=== PATIENT | male | born 1970 | race African-American/Black ===

== ENCOUNTER 2016-05-10 23:52 | Emergency (ER) | payer OTHER ==
[~2016-05-10] VITALS: Ht 170.2 cm; Wt 61.2 kg
[2016-05-11] MEDS ORDERED: IV NORMAL SALINE 1000ML BAG 1,000 ML IV SCH (00:30)
--- NOTE | 2016-05-11 00:35 | PHYS DOC ---
Past Medical History Past Medical History: No Pertinent History Past Surgical History: Other Additional Past Surgical Histo: finger Alcohol Use: None Drug Use: None Adult General Chief Complaint Chief Complaint: DIZZY/LIGHT HEADED HPI HPI Patient is a 45 year old male who presents with complaint of near syncopal symptoms. Patient states his symptoms started approximately 45 minutes prior to arrival. Patient states that he started noticing positional lightheadedness especially when he would try to stand up from sitting. Patient denies any previous history of similar symptoms. Patient denies any known health problems. 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 Patient states that he has been eating well but has been behind on his fluid intake. Patient denies any associated fever, chest pain, shortness of breath, abdominal pain, or vomiting. Review of Systems Review of Systems Constitutional: Lightheadedness, Denies fever or chills [] Eyes: Denies change in visual acuity, redness, or eye pain [] HENT: Denies nasal congestion or sore throat [] Respiratory: Denies cough or shortness of breath [] Cardiovascular: Denies chest pain or edema [] GI: Denies abdominal pain, nausea, vomiting, bloody stools or diarrhea [] : Denies dysuria or hematuria [] Musculoskeletal: Denies back pain or joint pain [] Integument: Denies rash or skin lesions [] Neurologic: Denies headache, focal weakness or sensory changes [] Current Medications Current Medications Current Medications Medications (Trade) Dose Ordered Sig/Sharad Start Time Stop Time Status Last Admin Dose Admin Sodium Chloride (Iv Sodium Chloride 0.9% 1000ml Bag) 1,000 ml @ 1,000 mls/hr Q1H 05/11/16 00:30 05/11/16 01:29 DC 05/11/16 00:36 1,000 MLS/HR Allergies Allergies Allergies Coded Allergies Type Severity Reaction Last Updated Verified No Known Drug Allergies 07/17/14 No Physical Exam Physical Exam Constitutional: Alert, afebrile, no acute distress. [] HENT: Normocephalic, atraumatic, bilateral external ears normal, oropharynx moist, no oral exudates, nose normal. [] Eyes: PERRLA, EOMI, conjunctiva normal, no discharge. [] Neck: Normal range of motion, no tenderness, supple, no stridor. [] Cardiovascular:Heart rate regular rhythm, no murmur [] Lungs & Thorax: Bilateral breath sounds clear to auscultation [] Abdomen: Bowel sounds normal, soft, no tenderness, no masses, no pulsatile masses. [] Skin: Warm, dry, no erythema, no rash. [] Back: No tenderness, no CVA tenderness. [] Extremities: No tenderness, no cyanosis, no clubbing, ROM intact, no edema. [] Neurologic: Alert and oriented X 3, normal motor function, normal sensory function, no focal deficits noted. [] Current Patient Data Vital Signs Vital Signs Date Time Temp Pulse Resp B/P Pulse Ox O2 Delivery O2 Flow Rate FiO2 05/11/16 01:14 51 14 101/60 100 Room Air 05/10/16 23:59 98.3 98.3 Lab Values Laboratory Tests Test 05/11/16 00:25 05/11/16 01:20 White Blood Count 5.1x10^3/uL (4.0-11.0) Red Blood Count 4.64x10^6/uL (4.30-5.70) Hemoglobin 13.9g/dL (13.0-17.5) Hematocrit 42.8% (39.0-53.0) Mean Corpuscular Volume 92fL (79-100) Mean Corpuscular Hemoglobin 30pg (25-35) Mean Corpuscular Hemoglobin Concent 33g/dL (31-37) Red Cell Distribution Width 13.6% (11.5-14.5) Platelet Count 206x10^3/uL (140-400) Neutrophils (%) (Auto) 50% (31-73) Lymphocytes (%) (Auto) 39% (24-48) Monocytes (%) (Auto) 9% (0-9) Eosinophils (%) (Auto) 1% (0-3) Basophils (%) (Auto) 1% (0-3) Neutrophils # (Auto) 2.6x10^3uL (1.8-7.7) Lymphocytes # (Auto) 2.0x10^3/uL (1.0-4.8) Monocytes # (Auto) 0.5x10^3/uL (0.0-1.1) Eosinophils # (Auto) 0.1x10^3/uL (0.0-0.7) Basophils # (Auto) 0.0x10^3/uL (0.0-0.2) Sodium Level 144mmol/L (136-145) Potassium Level 3.8mmol/L (3.5-5.1) Chloride Level 108mmol/L (98-107) H Carbon Dioxide Level 26mmol/L (21-32) Anion Gap 10 (6-14) Blood Urea Nitrogen 17mg/dL (8-26) Creatinine 1.1mg/dL (0.7-1.3) Estimated GFR (Cockcroft-Gault) 87.6 BUN/Creatinine Ratio 15 (6-20) Glucose Level 104mg/dL (70-99) H Calcium Level 8.9mg/dL (8.5-10.1) Total Bilirubin 0.2mg/dL (0.2-1.0) Aspartate Amino Transferase (AST) 14U/L (15-37) L Alanine Aminotransferase (ALT) 18U/L (16-63) Alkaline Phosphatase 46U/L (46-116) Creatine Kinase 215U/L (39-308) Creatine Kinase MB (Mass) < 0.5ng/mL (0.0-3.6) Creatine Kinase MB Relative Index 0.2% (0-4) Troponin I Quantitative < 0.017ng/mL (0.000-0.055) Total Protein 7.1g/dL (6.4-8.2) Albumin 3.7g/dL (3.4-5.0) Albumin/Globulin Ratio 1.1 (1.0-1.7) Urine Collection Type Unknown Urine Color Yellow Urine Clarity Clear Urine pH 7.0 Urine Specific Doyle >=1.030 Urine Protein Negativemg/dL (NEG-TRACE) Urine Glucose (UA) Negativemg/dL (NEG) Urine Ketones (Stick) Negativemg/dL (NEG) Urine Blood Negative (NEG) Urine Nitrite Negative (NEG) Urine Bilirubin Negative (NEG) Urine Urobilinogen Dipstick 1.0mg/dL (0.2 mg/dL) Urine Leukocyte Esterase Negative (NEG) Urine RBC 1-2/HPF (0-2) Urine WBC 1-4/HPF (0-4) Urine Squamous Epithelial Cells Occ/LPF Urine Bacteria 0/HPF (0-FEW) Urine Mucus Mod/LPF Urine Opiates Screen Neg (NEG) Urine Methadone Screen Neg (NEG) Urine Barbiturates Neg (NEG) Urine Phencyclidine Screen Neg (NEG) Urine Amphetamine/Methamphetamine Neg (NEG) Urine Benzodiazepines Screen Neg (NEG) Urine Cocaine Screen Neg (NEG) Urine Cannabinoids Screen Neg (NEG) Urine Ethyl Alcohol Neg (NEG) Laboratory Tests 05/11/16 00:25 Laboratory Tests 05/11/16 00:25 EKG EKG Interpreted by me: Heart rate 50, sinus bradycardia, left axis deviation, incomplete right bundle branch block, no acute ST/T-wave abnormalities present [ ] Radiology/Procedures Radiology/Procedures One view AP chest x-ray interpreted by me: No infiltrate, no effusions, normal cardiac silhouette [] Course & Med Decision Making Course & Med Decision Making Pertinent Labs and Imaging studies reviewed. (See chart for details) Patient was given IV fluids in the emergency department. Patient's urine was found to be highly concentrated, however rest of lab work was unremarkable. The patient's symptoms appear consistent with dehydration. After IV fluids, the patient feels better at this time. Patient was able to ambulate in the emergency department with a nonfocal during gait. Advised patient to continue with increased oral fluids at home and rest for the next few days with recommended follow-up in 3-4 days a primary doctor and return to emergency department for any worsening symptoms. Patient voiced understanding and in agreement with treatment plan. Dragon Disclaimer Dragon Disclaimer This electronic medical record was generated, in whole or in part, using a voice recognition dictation system. Departure Departure Impression: Primary Impression: Dehydration Additional Impression: Near syncope Disposition: HOME, SELF-CARE Condition: IMPROVED Referrals: IDALIA GONZALEZ MD (PCP) Patient Instructions: Dehydration, Adult Additional Instructions: Be sure to drink plenty of fluids at home. Follow-up with your primary doctor in 3-4 days and return to emergency department for any worsening symptoms. Problem Qualifiers GELA GARCIA MD May 11, 2016 00:35
[2016-05-11 00:42] LABS: BASO % 1 % (0-3); EOS % 1 % (0-3); HEMATOCRIT 42.8 % (39.0-53.0); HEMOGLOBIN 13.9 g/dL (13.0-17.5); LYMPH % 39 % (24-48); MEAN CORPUSCULAR HEMOGLOBIN 30 pg (25-35); MEAN CORPUSCULAR HGB CONC 33 g/dL (31-37); MEAN CORPUSCULAR VOLUME 92 fL (79-100); MONO % 9 % (0-9); NEUT % 50 % (31-73); PLATELET COUNT 206 x10^3/uL (140-400); RED BLOOD COUNT 4.64 x10^6/uL (4.30-5.70); RED CELL DISTRIBUTION WIDTH 13.6 % (11.5-14.5); WHITE BLOOD COUNT 5.1 x10^3/uL (4.0-11.0)
[2016-05-11 00:56] LABS: CALCIUM 8.9 mg/dL (8.5-10.1); CREATININE 1.1 mg/dL (0.7-1.3); GFR 87.6; POTASSIUM 3.8 mmol/L (3.5-5.1)
[2016-05-11 01:02] LABS: ALBUMIN 3.7 g/dL (3.4-5.0); ALBUMIN/GLOBULIN RATIO 1.1 (1.0-1.7); TOTAL BILIRUBIN 0.2 mg/dL (0.2-1.0); TOTAL PROTEIN 7.1 g/dL (6.4-8.2)
[2016-05-11 01:10] LABS: CREATINE KINASE 215 U/L (39-308)
[2016-05-11 01:13] LABS: CKMB INDEX 0.2 % (0-4); CKMB MASS < 0.5 ng/mL (0.0-3.6)
[2016-05-11 01:41] LABS: BILIRUBIN,URINE NEGATIVE (NEG); GLUCOSE,URINE NEGATIVE (NEG); NITRITE,URINE NEGATIVE (NEG); PROTEIN,URINE NEGATIVE (NEG-TRACE)
[2016-05-11 01:47] LABS: BARBITURATES NEG (NEG); BENZODIAZEPINES NEG (NEG); CANNABINOIDS NEG (NEG); COCAINE NEG (NEG); METHADONE NEG (NEG); OPIATES NEG (NEG); PHENCYCLIDINE NEG (NEG)
[2016-05-11 01:49] LABS: BACTERIA,URINE 0 /HPF (0-FEW); SQUAMOUS EPITHELIAL CELL,UR OCC /LPF
[2016-05-11 01:56] LABS: ETHANOL, URINE NEG (NEG)
[2016-05-11 02:00] VITALS: BP 99/67
--- NOTE | 2016-05-11 07:59 | RAD ---
Indication near syncope. Protocol study. A single view of the chest was obtained and is compared to an examination almost 7 years earlier. The heart and pulmonary vessels appear normal. The lungs are clear. There has not been a significant change compared to the previous exam. IMPRESSION: No acute or significant finding apparent in the chest
--- NOTE | 2016-05-11 11:27 | EKG ---
[facility] [address] [place] [address] Test Date: 2016-05-11 Test Time: 00:00:17 Pat Name: JULIOCESAR KRUGER Department: Room: Gender: M Weigher Production: : 1970 Requested By: GLEA GARCIA Order Number: [id number] Reading MD: Measurements Intervals [place] Rate: 50 P: 54 DC: 156 QRS: -59 QRSD: 98 T: 62 QT: 384 QTc: 352 Interpretive Statements SINUS RHYTHM ABNORMAL LEFT AXIS DEVIATION LEFT ANTERIOR FASCICULAR BLOCK INCOMPLETE RIGHT BUNDLE BRANCH BLOCK T ABNORMALITY IN HIGH LATERAL LEADS ABNORMAL ECG RI6.01 No previous ECG available for comparison
== END 2016-05-11 02:38 | disposition home or self-care (01) ==
LOC: ER 23:52
DX: E86.0 Dehydration (principal); R55 Syncope and collapse
CPT/HCPCS: 36415; 71010; 80053; 80305; 80320; 81001; 82553; 84484; 85027; 93005; 96360; 99285; J7030; G0481

== ENCOUNTER → 2017-01-15 | Outpatient (CLI) | payer OTHER ==
--- NOTE | 2017-01-15 16:05 | CARD ---
APPROVED REPORT INDICATION Fatigue Chest Pain Reason : Patient complained of pain PROCEDURE The patient underwent an Exercise Stress Test using the Modified Kan Protocol. Blood pressure, hear t rate, and EKG were monitored. An Echocardiogram was performed by geothermal technician in four stages in quad fashion. At peak stress four se lected images were obtained and placed side by side with resting images for comparison. STRESS ECHO FINDINGS The resting Echocardiogram showed normal left ventricular systolic contractility with an estimated Ej ection Fraction of about 55 %. The Resting Echocardiogram showed normal augmentation of myocardial wall segments using a 16 segment model. The Stress Echocardiogram left ventricular systolic contractility has an estimated Ejection Fraction of about 70%. Test Type: Exercise Stress Nurse/Tech: Marge Potts R.N. Test Indications: CHEST PAIN Cardiac History and Allergies: NONE Medications: NONE Medical History: NONE Resting ECG: SR Resting Heart Rate: 56 bpm Resting Blood Pressure: 107/54mmHg Pretest Chest Pain: No chest pain Nurse/Tech Notes LUNGS CTA, HEART TONES REGULAR Stress Symptoms No chest pain or symptoms. POST EXERCISE Reason for Termination: Reached target heart rate Target HR: Yes Max HR: 160 bpm 92% of Maximum Predicted HR: 174 bpm Exercise duration: 9:02 min:sec, 3 Stage Exercise capacity: 10.1METs Max Blood Pressure: 132/68mmHg Blood Pressure response to exercise: Normal blood pressure response during stress. Heart Rate response to exercise: NORMAL Chest Pain: No. Arrhythmia: Yes. PACS ST Change: Yes. ST DEPRESSION V3-V6 DURING EXERCISE WHICH RESOLVED IN RECOVERY RESTING ECG Rhythm: Sinus Repolarization: Normal STRESS ECG Rhythm: Sinus Tachycardia Stress EKG shows no significant changes. Preliminary Notification Critical Value: No <Conclusion> Good exercise capacity at 10.1 Mets. Normal resting wall motion and EF at 55% Normal stress wall motion and EF at 70% (Stress images obtained at less than APMHR) Slightly blunted BP response. Low risk study (Amaro Treadmill score of 0)
== END | disposition home or self-care (01) ==
LOC: ECHO 13:33
PROVIDERS: ATTEND Internal Medicine Cardiovascular Disease
DX: R07.89 Other chest pain (principal); R00.0 Tachycardia, unspecified
CPT/HCPCS: 93017; 93350

== ENCOUNTER 2019-02-18 16:40 | Emergency (ER) | payer OTHER ==
[~2019-02-18] VITALS: Ht 170.2 cm; Wt 63.5 kg
[2019-02-18 17:15] VITALS: BP 146/68
[2019-02-18] MEDS ORDERED: ACETAMINOPHEN 500 MG TABLET PO ONE (18:00)
--- NOTE | 2019-02-18 18:07 | PHYS DOC ---
Past Medical History Past Medical History: No Pertinent History (HILARIO VALDEZ APRN) Past Surgical History: Other Additional Past Surgical Histo: finger (HILARIO VALDEZ APRN) Alcohol Use: None Drug Use: None (HILARIO VALDEZ APRN) Adult General Chief Complaint Chief Complaint: NOSEBLEED [facility] HPI Patient is a 48 year old AA male accompanied by his , who presents to the emergency department with complaints of intermittent nosebleeds for the last 2 days. Patient states over the last week he has had a nonproductive cough, nasal congestion, sore throat, ear pain, and headaches. He denies the use of any blood thinners. He denies any injury or trauma to his nose. He denies any fever, nausea, vomiting, diarrhea, wheezing, or shortness of breath. Currently, he rates his pain a 5 out of 10 on the pain scale, he states the Tylenol helps his pain. All other ROS is neg unless otherwise noted in HPI. (HILARIO VALDEZ APRN) Review of Systems Review of Systems See Above (HILARIO VALDEZ APRN) Current Medications Current Medications Current Medications Medications (Trade) Dose Ordered Sig/Sharad Start Time Stop Time Status Last Admin Dose Admin Acetaminophen (Tylenol) 1,000 mg 1X ONCE 02/18/19 18:00 02/18/19 18:01 DC 02/18/19 17:58 1,000 MG (HAYDEN WRIGHT DO) Allergies Allergies Allergies Coded Allergies Type Severity Reaction Last Updated Verified No Known Drug Allergies 07/17/14 No (HAYDEN WRIGHT DO) Physical Exam Physical Exam See Above Constitutional: Well developed, well nourished, no acute distress, non-toxic appearance. [] HENT: Normocephalic, atraumatic, bilateral external ears normal, bilateral TMs normal, posterior pharynx normal oropharynx moist, no oral exudates; nasal turbinates are erythematous and edematous bilaterally, no active bleeding, nasal congestion Eyes: PERRLA, EOMI, conjunctiva normal, no discharge. [] Neck: Normal range of motion, no tenderness, supple, no stridor. [] Cardiovascular:Heart rate regular rhythm, no murmur [] Lungs & Thorax: Bilateral breath sounds clear to auscultation, Respirations e guerita and unlabored, no retractions, no respiratory distress [] Skin: Warm, dry, no erythema, no rash. [] Extremities: No cyanosis, ROM intact, no edema. [] Neurologic: Alert and oriented X 3, no focal deficits noted. [] Psychologic: Affect normal, judgement normal, mood normal. [] (HILARIO VALDEZ APRN) Current Patient Data Vital Signs Vital Signs Date Time Temp Pulse Resp B/P (MAP) Pulse Ox O2 Delivery O2 Flow Rate FiO2 02/18/19 17:15 98.6 64 12 146/68 (94) 98 Room Air 98.6 (HAYDEN WRIGHT DO) EKG EKG [] (HILARIO VALDEZ APRN) Radiology/Procedures Radiology/Procedures [] (HILARIO VALDEZ APRN) Course & Med Decision Making Course & Med Decision Making Pertinent Labs and Imaging studies reviewed. (See chart for details) [] (HILARIO VALDEZ APRN) Dragon Disclaimer Dragon Disclaimer This electronic medical record was generated, in whole or in part, using a voice recognition dictation system. (HILARIO VALDEZ APRN) Departure Departure Impression: Primary Impression: Rhinitis Additional Impression: URI with cough and congestion Disposition: HOME, SELF-CARE Condition: STABLE Referrals: IDALIA GONZALEZ MD (PCP) Patient Instructions: Upper Respiratory Infection, Adult, [id number] Additional Instructions: Apply vaseline or other moisturizer inside both nostrils twice daily. Recommend the use of a cool mist humidifier. Avoid airway irritants such as dust, perfume, smoke, and animal dander. Alternate tylenol and ibuprofen as needed for pain/fever. Follow up with your primary care doctor next week, return to the ER if symptoms worsen. Attending Signature Attending Signature I have reviewed the PA/BLOCK BOLTER MULE OPERATOR's note and plan of care. I was available for consultation as needed during the patient's visit in the emergency department. I agree with the clinical impression, plan, and disposition. (HAYDEN WRIGHT DO) Problem Qualifiers Primary Impression: Rhinitis Rhinitis type: acute Qualified Codes: J00 - Acute nasopharyngitis [common cold] HILARIO VALDEZ APRN Feb 18, 2019 18:07 HAYDEN WRIGHT DO Feb 23, 2019 19:40
== END 2019-02-18 18:08 | disposition home or self-care (01) ==
LOC: ER 16:40
DX: J00 Acute nasopharyngitis [common cold] (principal); J06.9 Acute upper respiratory infection, unspecified
CPT/HCPCS: 99282

== ENCOUNTER 2020-01-24 09:43 | Emergency (ER) | payer OTHER ==
[~2020-01-24] VITALS: Ht 170.2 cm; Wt 63.6 kg
[2020-01-24] MEDS ORDERED: IV NORMAL SALINE 1000ML BAG 1,000 ML IV ONE (10:15)
--- NOTE | 2020-01-24 10:20 | PHYS DOC ---
Past Medical History Past Medical History: Migraines (ALEXIE PRADHAN APRN) Past Surgical History: No Surgical History Additional Past Surgical Histo: finger (ALEXEI PRADHAN APRN) Smoking Status: Never Smoker Alcohol Use: None Drug Use: None (ALEXEI PRADHAN APRN) General Adult EDM: Chief Complaint: HEADACHE HPI: HPI: Patient is a 49 year old male with history of migraines that presents to the emergency room for migraine headache that started at 10:00 last night. He reports his headache is frontal. He is having nausea and vomiting and light sensitivity. He reports this is typical for his migraines, similar location and intensity. He has not had any recent head injuries or falls. He normally takes [id number] medication for his migraines. (ALEXEI PRADHAN APRN) Review of Systems: Review of Systems: Constitutional: Denies fever or chills. [] Eyes: Denies change in visual acuity. [] HENT: Denies nasal congestion or sore throat. [] Respiratory: Denies cough or shortness of breath. [] Cardiovascular: Denies chest pain or edema. [] GI: Denies abdominal pain, nausea, vomiting, bloody stools or diarrhea. [] : Denies dysuria. [] Musculoskeletal: Denies back pain or joint pain. [] Integument: Denies rash. [] Neurologic: reports headache, denies focal weakness or sensory changes. [] Endocrine: Denies polyuria or polydipsia. [] Lymphatic: Denies swollen glands. [] Psychiatric: Denies depression or anxiety. [] (ALEXEI PRADHAN APRN) Heart Score: Risk Factors: Risk Factors: DM, Current or recent (<one month) smoker, HTN, HLP, family history of CAD, obesity. Risk Scores: Score 0 - 3: 2.5% MACE over next 6 weeks - Discharge Home Score 4 - 6: 20.3% MACE over next 6 weeks - Admit for Clinical Observation Score 7 - 10: 72.7% MACE over next 6 weeks - Early Invasive Strategies (ALEXEI PRADHAN APRN) Current Medications: Current Medications Medications (Trade) Dose Ordered Sig/Sharad Start Time Stop Time Status Last Admin Dose Admin Dexamethasone Sodium Phosphate (Decadron) 4 mg 1X ONCE 12/8/20 10:45 01/24/20 10:46 Diphenhydramine HCl (Benadryl) 25 mg 1X ONCE 01/24/20 10:45 01/24/20 10:46 Ketorolac Tromethamine (Toradol 15mg Vial) 15 mg 1X ONCE 01/24/20 10:45 01/24/20 10:46 Ondansetron HCl (Zofran) 4 mg 1X ONCE 01/24/20 10:45 01/24/20 10:46 Sodium Chloride 1,000 ml @ 1,000 mls/hr 1X ONCE 01/24/20 10:15 01/24/20 11:14 (ALEXEI PRADHAN APRN) Allergies: Allergies: Allergies Coded Allergies Type Severity Reaction Last Updated Verified No Known Drug Allergies 07/17/14 No (ALEXEI PRADHAN APRN) Physical Exam: PE: Constitutional: Well developed, well nourished, no acute distress, non-toxic appearance, UNCOMFORTABLE. [] HENT: Normocephalic, atraumatic, bilateral external ears normal, oropharynx moist, no oral exudates, nose normal. [] Eyes: PERRLA, EOMI, conjunctiva normal, no discharge. [] Neck: Normal range of motion, no tenderness, supple, no stridor. [] Cardiovascular:Heart rate regular rhythm, no murmur [] Lungs & Thorax: Bilateral breath sounds clear to auscultation [] Skin: Warm, dry, no erythema, no rash. [] Extremities: No tenderness, no cyanosis, no clubbing, ROM intact, no edema. [] Neurologic: Alert and oriented X 3, normal motor function, normal sensory function, no focal deficits noted. [] Psychologic: Affect normal, judgement normal, mood normal. [] (ALEXEI PRADHAN APRN) Current Patient Data: Vital Signs: Vital Signs Date Time Temp Pulse Resp B/P (MAP) Pulse Ox O2 Delivery O2 Flow Rate FiO2 01/24/20 10:03 98.9 91 16 117/70 (86) 96 Room Air 98.9 (ALEXEI PRADHAN APRN) EKG: EKG: [] (ALEXEI PRADHAN APRN) Radiology/Procedures: Radiology/Procedures: [] (ALEXEI PRADHAN APRN) Course & Med Decision Making: Course & Med Decision Making Pertinent Labs and Imaging studies reviewed. (See chart for details) []1115 reassessment of patient, patient states he is feeling better, he is ready for discharge home. He will call and follow-up with his primary care doctor in the next 2 to 3 days. Return to ER for new or worsening symptoms. (ALEXEI PRADHAN APRN) Course & Med Decision Making I have reviewed the PA/SUPERVISOR SOAKERS's note and Plan of Care. I was available for consu ltation as needed during the patient's visit in the emergency department. I agree with the clinical impression, plans and disposition. (EJ DEL TORO MD) Dragon Disclaimer: Dragon Disclaimer: This electronic medical record was generated, in whole or in part, using a voice recognition dictation system. (ALEXEI PRADHAN APRN) Departure Departure Impression: Primary Impression: Migraine Qualified Codes: G43.909 - Migraine, unspecified, not intractable, without status migrainosus Disposition: 01 DC HOME SELF CARE/HOMELESS Referrals: IDALIA GONZALEZ MD (PCP) Patient Instructions: Migraine Headache, [id number] ALEXEI PRADHAN APRN Jan 24, 2020 10:20 EJ DEL TORO MD Jan 24, 2020 14:13
[2020-01-24] MEDS ORDERED: ONDANSETRON PF 4 MG/2 ML VIAL. IVP ONE (10:45)
[2020-01-24] MEDS ORDERED: KETOROLAC 15 MG/ML VIAL. IV ONE (10:45)
[2020-01-24] MEDS ORDERED: DEXAMETHASONE SOD PHOS 4 MG/ML VIAL IVP ONE (10:45)
[2020-01-24] MEDS ORDERED: diphenhydrAMINE 50 MG/ML VIAL IVP ONE (10:45)
[2020-01-24 10:58] VITALS: BP 113/69
== END 2020-01-24 11:38 | disposition home or self-care (01) ==
LOC: ER 09:43
DX: G43.909 Migraine, unspecified, not intractable, without status migrainosus (principal)
CPT/HCPCS: 96361; 96374; 96375; 99284; J1100; J1200; J1885; J2405; J7030

== ENCOUNTER 2020-01-26 18:55 | Emergency (ER) | payer OTHER ==
[~2020-01-26] VITALS: Ht 170.2 cm; Wt 63.6 kg
--- NOTE | 2020-01-26 20:08 | PHYS DOC ---
Past Medical History Past Medical History: Migraines (KANWAL GONZALEZ SCIENTOLOGIST) Past Surgical History: No Surgical History Additional Past Surgical Histo: finger (KANWAL GONZALEZ SCIENTOLOGIST) Smoking Status: Never Smoker Alcohol Use: None Drug Use: None (MANANKANWAL SCIENTOLOGIST) General Adult EDM: Chief Complaint: Congestion HPI: HPI: Patient is a 49 year old male who presents with today began having a fever, bilateral sides of his chest pain, fatigue, low back pain. He states that there were people at work with Covid but he does not think that he has been around them. He states he did not take anything for his pain or his fever. Patient denies nausea, vomiting, abdominal pain, urinary symptoms, vision changes, numbness or tingling, focal weakness, diarrhea. He has a history of migraines. Patient rates his nonradiating low back pain and headache a 9 out of 10. (KANWAL GONZALEZ SCIENTOLOGIST) Review of Systems: Review of Systems: Constitutional: + fever or chills. [] Eyes: Denies change in visual acuity. [] HENT: Denies nasal congestion or sore throat. [] Respiratory: Denies cough or shortness of breath. [] Cardiovascular: + chest pain or denies edema. [] GI: Denies abdominal pain, nausea, vomiting, bloody stools or diarrhea. [] : Denies dysuria. [] Musculoskeletal: + Low back pain or denies joint pain. [] Integument: Denies rash. [] Neurologic: + headache, denies focal weakness or sensory changes. [] Endocrine: Denies polyuria or polydipsia. [] Lymphatic: Denies swollen glands. [] Psychiatric: Denies depression or anxiety. [] (KANWAL GONZALEZ SCIENTOLOGIST) Heart Score: HEART Score for Chest Pain: HEART Score for Chest Pain Response (Comments) Value History Slighlty/Non-Suspicious 0 Total 0 Risk Factors: Risk Factors: DM, Current or recent (<one month) smoker, HTN, HLP, family history of CAD, obesity. Risk Scores: Score 0 - 3: 2.5% MACE over next 6 weeks - Discharge Home Score 4 - 6: 20.3% MACE over next 6 weeks - Admit for Clinical Observation Score 7 - 10: 72.7% MACE over next 6 weeks - Early Invasive Strategies (KANWAL GONZALEZ APRN) Allergies: Allergies: Allergies Coded Allergies Type Severity Reaction Last Updated Verified No Known Drug Allergies 07/17/14 No (KANWAL GONZALEZ APRN) Physical Exam: PE: Constitutional: Well developed, well nourished, no acute distress, non-toxic appearance. Febrile. [] HENT: Normocephalic, atraumatic, bilateral external ears normal, oropharynx moist, no oral exudates, nose normal. [] Eyes: PERRLA, EOMI, conjunctiva normal, no discharge. [] Neck: Normal range of motion, no tenderness, supple, no stridor. [] Cardiovascular:Heart rate regular rhythm, no murmur [] Lungs & Thorax: Bilateral breath sounds clear to auscultation [] Abdomen: Bowel sounds normal, soft, no tenderness, no masses, no pulsatile masses. [] Skin: Warm, dry, no erythema, no rash. [] Back: No tenderness, no CVA tenderness. [] Extremities: No tenderness, no cyanosis, no clubbing, ROM intact, no edema. [] Neurologic: Alert and oriented X 3, normal motor function, normal sensory func tion, no focal deficits noted. [] Psychologic: Affect normal, judgement normal, mood normal. [] (KANWAL GONZALEZ SCIENTOLOGIST) Current Patient Data: Vital Signs: Vital Signs Date Time Temp Pulse Resp B/P (MAP) Pulse Ox O2 Delivery O2 Flow Rate FiO2 01/26/20 19:35 100.0 72 18 107/60 (76) 100 Room Air 100.0 (KANWAL GONZALEZ SCIENTOLOGIST) EKG: EK AND READ BY DR THOMSON SINUS RYTHM AND NO STEMI (KANWAL GONZALEZ SCIENTOLOGIST) Radiology/Procedures: Radiology/Procedures: [] Impression: [facility] [address] [place] [address] IMAGING REPORT Signed PATIENT: JULIOCESAR KRUGER ACCOUNT: [id number] : 1970 LOCATION: ER AGE: 49 SEX: M EXAM STATUS: REG ER ORD. PHYSICIAN: KANWAL GONZALEZ APRN REASON: PAIN, PUI PROCEDURE: PORTABLE CHEST 1V Exam: Chest one view INDICATION: Pain TECHNIQUE: Frontal view of the chest Comparisons: 05/11/2016 FINDINGS: The cardiomediastinal silhouette and pulmonary vessels are within normal limits. The lung and pleural spaces are clear. IMPRESSION: No acute cardiopulmonary process. Electronically signed by: Yecenia Clay MD (01/26/2020 8:15 PM) [facility] DICTATED and SIGNED BY: YECENIA CLAY MD DATE: 01/26/[id number] 0 [facility] [address] [place] [address] IMAGING REPORT Signed PATIENT: JULIOCESAR KRUGER ACCOUNT: [id number] : 1970 LOCATION: ER AGE: 49 SEX: M EXAM STATUS: REG ER ORD. PHYSICIAN: KANWAL GONZALEZ APRN REASON: CHEST PAIN THAT IS WORSE WHEN BREATHING PROCEDURE: CT ANGIOGRAPHY CHEST Exam: CT of chest with contrast INDICATION: Chest pain TECHNIQUE: Sequential axial images through the chest obtained following the administration of 70 mL of Isovue-370 IV contrast. Sagittal and coronal reformatted images were reconstructed from the axial data and reviewed. 3-D reformatted images were reconstructed from the axial data and reviewed. Comparisons: Chest x-ray same day FINDINGS: Visualized portions of the thyroid are unremarkable. No enlarged mediastinal lymph nodes are identified. Heart size is normal. No pericardial effusion. Thoracic aorta has a normal course and caliber. Pulmonary artery is not enlarged. No pulmonary embolus identified within the main, lobar or segmental pulmonary arteries. Airways are patent. No consolidation or pneumothorax. No suspicious lung nodules are identified. No pleural effusion or thickening. Visualized upper abdomen is unremarkable. No suspicious osseous lesions or acute fractures. IMPRESSION: No pulmonary embolus identified within the main, lobar or segmental pulmonary arteries. Exposure: One or more of the following in the visualized dose reduction techniques were utilized for this examination: 1. Automated exposure control 2. Adjustment of the MA and/or KV according to patient size 3. Use of iterative of reconstructive technique Electronically signed by: Yecenia Clay MD (01/26/2020 10:08 PM) [facility] DICTATED and SIGNED BY: YECENIA CLAY MD DATE: 01/26/20 [id number] (KANWAL GONZALEZ APRN) Course & Med Decision Making: Course & Med Decision Making Pertinent Labs and Imaging studies reviewed. (See chart for details) COVID-19 CRITERIA: The patient was evaluated during the global COVID-19 pandemic, and that diagnosis was suspected/considered upon their initial presentation. Their evaluation, treatment and testing was consistent with current guidelines for patients who present with complaints or symptoms that may be related to COVID-19. See HPI. Alert and oriented x4. Ambulatory with a steady gait. Speaks in full complete sentences. Skin pink warm and dry. PERRLA. Patient is given Tylenol in the ED. [] (KANWAL GONZALEZ APRN) Course & Med Decision Making I have reviewed the [facility]'s note and plan of care. Entire ER work-up reviewed at length. I agree with the clinical impression, plan, and disposition. (CATHY THOMSON DO) Irena Disclaimer: Irena Disclaimer: This electronic medical record was generated, in whole or in part, using a voice recognition dictation system. (KANWAL GONZALEZ APRN) COVID-19 Patient Risks: Age 65 or older: No Sign of co-morbidity: No Exp to person + for COVID: No Exp to PUI: No Travel from affected area: No Lower respiratory symptoms: Yes Fever: Yes Other: No (KANWAL GONZALEZ APRN) PPE Use: Full PPE with N95 mask or PAPR: Yes (KANWAL GONZALEZ APRN) Departure Departure Impression: Primary Impression: Person under investigation for COVID-19 Additional Impressions: Body aches Chest pain Qualified Codes: R07.1 - Chest pain on breathing Fever Qualified Codes: R50.9 - Fever, unspecified Disposition: 01 DC HOME SELF CARE/HOMELESS Condition: STABLE Referrals: IDALIA GONZALEZ MD (PCP) Patient Instructions: Fever, Adult Additional Instructions: Drink plenty of fluids. Take Tylenol or ibuprofen for your pain and fever. Take medications as they are prescribed. Quarantine for the next 10 days until you get your Covid test back. Covid test will be back in 24 to 48 hours. Scripts Ibuprofen (IBUPROFEN) 600 Mg Tablet 600 MG PO PRN Q6HRS PRN for INFLAMMATION, #20 TAB Prov: KANWAL GONZALEZ APRN 01/26/20 Azithromycin (AZITHROMYCIN TABLET) 250 Mg Tablet 1 PKG PO UD for 5 Days, #6 TAB 0 Refills 2 the first day followed by 1 for days 2-5 Prov: KANWAL GONZALEZ APRN 01/26/20 Methylprednisolone (MEDROL) 4 Mg Tab.ds.pk 1 PKG PO UD, #1 PKG Prov: KANWAL GONZALEZ APRN 01/26/20 KANWAL GONZALEZ APRN Jan 26, 2020 20:08 CATHY THOMSON DO Jan 27, 2020 02:53
[2020-01-26] MEDS ORDERED: ACETAMINOPHEN 500 MG TABLET PO ONE (20:15)
--- NOTE | 2020-01-26 20:17 | RAD ---
Exam: Chest one view INDICATION: Pain TECHNIQUE: Frontal view of the chest Comparisons: 05/11/2016 FINDINGS: The cardiomediastinal silhouette and pulmonary vessels are within normal limits. The lung and pleural spaces are clear. IMPRESSION: No acute cardiopulmonary process. Electronically signed by: Yecenia Pruitt MD (01/26/2020 8:15 PM) [facility]
[2020-01-26 20:54] LABS: BASO % 1 % (0-3); EOS % 0 % (0-3); HEMATOCRIT 40.3 % (39.0-53.0); HEMOGLOBIN 13.7 g/dL (13.0-17.5); LYMPH # 0.9 x10^3/uL (1.0-4.8); LYMPH % 22 % (24-48); MEAN CORPUSCULAR HEMOGLOBIN 31 pg (25-35); MEAN CORPUSCULAR HGB CONC 34 g/dL (31-37); MEAN CORPUSCULAR VOLUME 92 fL (79-100); MONO # 0.7 x10^3/uL (0.0-1.1); MONO % 16 % (0-9); NEUT # 2.6 x10^3/uL (1.8-7.7); NEUT % 61 % (31-73); PLATELET COUNT 189 x10^3/uL (140-400); RED BLOOD COUNT 4.39 x10^6/uL (4.30-5.70); RED CELL DISTRIBUTION WIDTH 13.2 % (11.5-14.5); WHITE BLOOD COUNT 4.2 x10^3/uL (4.0-11.0)
[2020-01-26 21:02] LABS: CALCIUM 8.8 mg/dL (8.5-10.1); CREATININE 1.2 mg/dL (0.7-1.3); GFR 77.9; POTASSIUM 3.8 mmol/L (3.5-5.1)
[2020-01-26 21:07] LABS: ALBUMIN 3.8 g/dL (3.4-5.0); ALBUMIN/GLOBULIN RATIO 1.1 (1.0-1.7); TOTAL BILIRUBIN 0.2 mg/dL (0.2-1.0); TOTAL PROTEIN 7.3 g/dL (6.4-8.2)
[2020-01-26] MEDS ORDERED: IV NORMAL SALINE 1000ML BAG 1,000 ML IV ONE (21:15)
[2020-01-26] MEDS ORDERED: CONTRAST GIVEN. MC PRN (22:00)
[2020-01-26] MEDS ORDERED: IOHEXOL 350 MG/ML 100 ML VIAL. IV ONE (22:00)
[2020-01-26 22:10] VITALS: BP 110/60
--- NOTE | 2020-01-26 22:11 | RAD ---
Exam: CT of chest with contrast INDICATION: Chest pain TECHNIQUE: Sequential axial images through the chest obtained following the administration of 70 mL o f Isovue-370 IV contrast. Sagittal and coronal reformatted images were reconstructed from the axial d mark anthony and reviewed. 3-D reformatted images were reconstructed from the axial data and reviewed. Comparisons: Chest x-ray same day FINDINGS: Visualized portions of the thyroid are unremarkable. No enlarged mediastinal lymph nodes are identifi ed. Heart size is normal. No pericardial effusion. Thoracic aorta has a normal course and caliber. Pulmon ada artery is not enlarged. No pulmonary embolus identified within the main, lobar or segmental pulmo nary arteries. Airways are patent. No consolidation or pneumothorax. No suspicious lung nodules are identified. No pleural effusion or thickening. Visualized upper abdomen is unremarkable. No suspicious osseous lesions or acute fractures. IMPRESSION: No pulmonary embolus identified within the main, lobar or segmental pulmonary arteries. Exposure: One or more of the following in the visualized dose reduction techniques were utilized for this examination: 1. Automated exposure control 2. Adjustment of the MA and/or KV according to patient size 3. Use of iterative of reconstructive technique Electronically signed by: Yecenia Pruitt MD (01/26/2020 10:08 PM) [facility]
[2020-01-26] MEDS ORDERED: AZIT250T6 PO (22:17)
[2020-01-26] MEDS ORDERED: METH4TAB2 PO (22:17)
[2020-01-26] MEDS ORDERED: IBUP-1007 PO (22:17)
--- NOTE | 2020-01-29 13:08 | NUR ---
IP: Informed pt of positive COVID results and the need to quarantine for 14 days. Pt verbalized understanding.
== END 2020-01-26 22:20 | disposition home or self-care (01) ==
LOC: ER 18:55
DX: U07.1 COVID-19 (principal); R50.9 Fever, unspecified; M54.5 Low back pain; R07.89 Other chest pain; G43.909 Migraine, unspecified, not intractable, without status migrainosus; Z98.890 Other specified postprocedural states
CPT/HCPCS: 36415; 71045; 71275; 80053; 84484; 85025; 85379; 96360; 99285; C9803; J7030; Q9967; U0003; 99283

== ENCOUNTER 2021-02-06 13:05 | Emergency (ER) | payer OTHER ==
[~2021-02-06] VITALS: Ht 170.2 cm; Wt 63.6 kg
[~2021-02-06 13:05] MED LIST: AZIT250T6 PO; IBUP-1007 PO; METH4TAB2 PO
--- NOTE | 2021-02-06 13:57 | PHYS DOC ---
Past Medical History Past Medical History: Migraines Past Surgical History: No Surgical History Additional Past Surgical Histo: finger Smoking Status: Never Smoker Alcohol Use: None Drug Use: None General Adult EDM: Chief Complaint: FLU SYMPTOM HPI: HPI: Patient is a 50 year old male with history of migraines who presents with several symptoms 1 day after receiving his Covid vaccine. Received a Moderiba booster yesterday at 3:30 PM. Has been feeling well prior to the shot and through the night. Today at 11 AM began having chills, muscle aches, nausea, generalized weakness, and headache. Headache feels consistent with his previous migraines. He has taken Tylenol which has not improved his symptoms. States that when he gets a migraine that does not get better with Tylenol he typically comes to the emergency department for treatment. Denies any shortness of breath or chest pain. No lower extremity edema. His pr evious vaccination was with [employer], which he tolerated well. No vision changes, weakness, sensory changes. Review of Systems: Review of Systems: Constitutional: Denies fever. Reports chills. Reports generalized fatigue. Eyes: Denies change in visual acuity. [] HENT: Denies nasal congestion or sore throat. [] Respiratory: Denies cough or shortness of breath. [] Cardiovascular: Denies chest pain or edema. [] GI: Reports nausea. Denies abdominal pain, vomiting, bloody stools or diarrhea. [] : Denies dysuria. [] Musculoskeletal: Reports muscle aches, worst site of injection in right deltoid. Integument: Denies rash. [] Neurologic: Reports headache. Focal weakness or sensory changes. [] Heart Score: C/O Chest Pain: No Current Medications: Current Medications Medications (Trade) Dose Ordered Sig/[facility] Start Time Stop Time Status Last Admin Dose Admin Ketorolac Tromethamine (Toradol 15mg Vial) 15 mg 1X ONCE 02/06/21 14:00 02/06/21 14:01 UNV Prochlorperazine Edisylate (Compazine) 10 mg 1X ONCE 02/06/21 14:00 02/06/21 14:01 UNV Allergies: Allergies: Allergies Coded Allergies Type Severity Reaction Last Updated Verified No Known Drug Allergies 07/17/14 No Physical Exam: PE: Constitutional: No acute distress. HENT: Normocephalic, atraumatic. Neck: Normal range of motion, no tenderness, supple, no stridor. [] Cardiovascular:Heart rate regular rhythm, no murmur [] Lungs & Thorax: Bilateral breath sounds clear to auscultation [] Abdomen: Bowel sounds normal, soft, no tenderness, no masses, no pulsatile masses. [] Skin: Right deltoid mildly tender to the touch. No overlying redness, edema. Back: No tenderness, no CVA tenderness. [] Extremities: No tenderness, no cyanosis, no clubbing, ROM intact, no edema. [] Neurologic: Alert, oriented to person, place, time. Face is symmetric. Speech is normal. Cranial nerves III-XII intact. Intact strength in bilateral upper and lower extremities. EKG: EKG: [] Radiology/Procedures: Radiology/Procedures: [] Course & Med Decision Making: Course & Med Decision Making Pertinent Labs and Imaging studies reviewed. (See chart for details) Patient is a 50-year-old male who presents with multiple symptoms including muscle aches, chills, generalized fatigue, and headache following Covid vaccination. Symptoms began approximate 20 hours following vaccination. On arrival is afebrile, normal vital signs, overall well-appearing with a normal neurologic examination. Headache is consistent with migraines he has had previously, not worst headache of life or thunderclap. Do not feel that he requires CT imaging for CVT or other acute neurologic process. Seems consistent with adverse reaction to vaccine, will defer any diagnostic work-up for now. We will treat symptoms with Compazine and ketorolac and reevaluate. 1356 feeling much improved following meds. On reevaluation is still well-appearing with normal vital signs. Feel he safe for discharge at this time with ongoing conservative treatment with Tylenol and ibuprofen. Explained that I expect this to improve over the next 1-2 days, and if it continues further than this he needs to follow-up with his primary care doctor Discussed ED return precautions. Irena Disclaimer: Irena Disclaimer: This electronic medical record was generated, in whole or in part, using a voice recognition dictation system. Departure Departure Impression: Primary Impression: Vaccines and biological substances causing adverse effect in therapeutic use Disposition: 01 HOME / SELF CARE / HOMELESS Condition: STABLE Referrals: IDALIA GONZALEZ MD (PCP) Additional Instructions: I suspect your symptoms are due to your Covid vaccine. This should improve over the next 1-2 days. If it persists longer than that she need to follow-up with your primary care doctor for reevaluation. If you develop new/severe symptoms such as worsening headache, confusion, speech difficulty, weakness, numbness, chest pain, shortness of breath please return to the emergency department for reevaluation. For aches/fever/chills tylenol and ibuprofen are best used on a schedule. Please alternate between the two. -Tylenol 1000 mg every 6 hours (do not exceed 4000 mg in one day) -Ibuprofen 400 mg every 6 hours. Take with food. Do not take for more than 1 week. LINDA RANGEL MD Feb 06, 2021 13:56
[2021-02-06] MEDS ORDERED: KETOROLAC 30 MG/ML VIAL. INJ ONE (14:00)
[2021-02-06] MEDS ORDERED: PROCHLORPERAZINE 10 MG/2 ML VIAL. IV ONE (14:00)
[2021-02-06 15:40] VITALS: BP 105/63
== END 2021-02-06 16:14 | disposition home or self-care (01) ==
LOC: ER 13:05
DX: G43.909 Migraine, unspecified, not intractable, without status migrainosus (principal); T50.Z95A Adverse effect of other vaccines and biological substances, initial encounter; Y84.8 Other medical procedures as the cause of abnormal reaction of the patient, or of later complication, without mention of misadventure at the time of the procedure; Y92.89 Other specified places as the place of occurrence of the external cause
CPT/HCPCS: 96374; 96375; 99284; J0780; J1885